=== PATIENT | female | born 1935 | race Caucasian/White ===

== ENCOUNTER 2017-05-02 00:01 | Inpatient (IN) | payer BC ==
--- NOTE | ~2017-05-02 | OP ---
Record Of Operation [facility] [address] [place]. [address] NAME: REINA GUARDADO : 37 STATUS : ADM IN PAT#: [id number] AGE: 81 ADM/REG DATE : 05/02/17 MR#: [id number] REPORT SERV DATE: 05/02/17 DICTATED BY: CORDELIA CADE DATE: 05/02/17 REPORT STATUS : Draft TRANSCRIBED BY: MODL DATE: 05/02/17 DATE OF PROCEDURE: 05/02/2017 PREOPERATIVE DIAGNOSIS: Left hip intertrochanteric hip fracture. POSTOPERATIVE DIAGNOSIS: Left hip intertrochanteric hip fracture (3 part). SURGEON: Cordelia Cade M.D. STUDENT ASSISTANT: Merritt Paulson. ANESTHESIA: General. PROCEDURE IN DETAIL: The patient is clearly identified and after obtaining informed consent, she is brought to the operating room at [facility] where she is induced under general anesthesia via LMA, carefully placed on the fracture table with distraction, internal rotation, and image intensification reveals anatomic position and alignment of the fracture which is noted to be somewhat transverse intertrochanteric area, but this seems that the greater trochanteric fragment is somewhat unstable as well. Regardless, the left lower extremity is then prepped and draped in the usual manner. A time-out procedure is successfully performed through an inch incision above the greater trochanter. Skin is divided, fascial planes are elevated, the guidepin is applied and proximal reamings performed. A 125 short gamma nail is then placed uneventfully. A second incision is made with a guidepin placed in the appropriate position of the femoral head. It is reamed and the lag screw is applied and locked in dynamic fashion. The distal dynamic screw is then placed uneventfully utilizing the guide, and this concluded, the instruments are all removed. The implant looks excellent. The fixation position looks good and the area is then copiously irrigated and closed in layers. The leg is cleansed and dressed. The patient is allowed to awaken and is transferred to the recovery room in stable condition having tolerated the procedure well. ESTIMATED BLOOD LOSS: 50 mL. FLUIDS: 500 mL. TOURNIQUET TIME: None. PATHOLOGY: None. MICROBIOLOGY: None. COMPLICATIONS: None. SPONGE AND NEEDLE COUNTS: Reportedly correct. ANTIBIOTICS: Administered appropriately preoperatively and ordered to be discontinued within Record Of Operation [facility] [address] [place]. [address] NAME: REINA GUARDADO : 37 STATUS : ADM IN PAT#: [id number] AGE: 81 ADM/REG DATE : 05/02/17 MR#: [id number] REPORT SERV DATE: 05/02/17 DICTATED BY: CORDELIA CADE DATE: 05/02/17 REPORT STATUS : Draft TRANSCRIBED BY: MODL DATE: 05/02/17 23 hours. IMPLANTS: Venkat short Gamma nail. JN/BRENNONL Cordelia Cade M.D. / [id number] CC: Stuart Floyd DO
--- NOTE | ~2017-05-02 | DS ---
Discharge Summary [place] [id number] [facility] [place]. [address] NAME: REINA GUARDADO : 37 STATUS : DIS IN PAT#: [id number] AGE: 81 ADM/REG DATE : 05/02/17 MR#: [id number] REPORT SERV DATE: 05/07/17 DICTATED BY: FAN PARISH DATE: 05/06/17 REPORT STATUS : Draft TRANSCRIBED BY: BRENNONL DATE: 05/06/17 ADMISSION DATE: 05/02/2017 DISCHARGE DATE: 05/06/2017 REASON FOR ADMISSION: This was an 81-year-old female who had a fall in her driveway at home and had a left hip intratrochanteric hip fracture which was discovered at [facility] Emergency room and they were transferred to [facility] for surgery. DISCHARGE DIAGNOSES: 1. Left hip fracture, status post repair. 2. Hypertension. 3. Acute blood loss anemia. HOSPITAL COURSE: 1. The patient had hip fracture repair done by Dr. Timothy Cade on 05/02/2017. The patient did well with surgery. She has no real significant comorbidities other than hypertension and so she has done quite well postoperatively, moving around well with PT, but still was in need of inpatient rehab. She has been started on Coumadin. Her INR is 1.4, and she has been arranged for rehab at [facility]. 2. Acute blood loss anemia. The patient's hemoglobin did drop after surgery, but is stable at 9.9. DISCHARGE CONDITION: Stable. DISCHARGE MEDICATIONS: 1. Lisinopril 20 mg p.o. q.h.s. 2. Vitamin D3 5000 units p.o. q.h.s. 3. Coumadin sliding scale. DISCHARGE PLAN: The patient is discharged to [facility] for rehab and follow up with her primary care, Dr. Kelley French, after discharge. DICTATED BY: APOLONIA Quintana/DEREK Fan Parish APN / [id number] CC: Keagan Martinez M.D. Discharge Summary [place] [id number] [place]. [address] NAME: REINA GUARDADO : 37 STATUS : DIS IN PAT#: [id number] AGE: 81 ADM/REG DATE : 05/02/17 MR#: [id number] REPORT SERV DATE: 05/07/17 DICTATED BY: FAN PARISH DATE: 05/06/17 REPORT STATUS : Draft TRANSCRIBED BY: MODL DATE: 05/06/17 DO Timothy Lebron M.D.
[~2017-05-02 00:01] MED LIST: *DENIES; PRIN20 PO; VITAMIN D31000 UNIT PO
[2017-05-02 06:47] LABS: BASOPHILS 0.2 %; BASOPHILS ABSOLUTE 0.02 10/3/uL (0.0-0.16); EOSINOPHILS 0.2 %; EOSINOPHILS ABSOLUTE 0.02 10/3/uL (0.0-0.53); HEMATOCRIT 32.7 % (36.0-48.0); HEMOGLOBIN 11.4 g/dL (12.0-16.0); IMMATURE GRANULOCYTES 0.2 %; IMMATURE GRANULOCYTES ABSOLUTE 0.02 10/3/uL (0.0-0.11); LYMPHOCYTES 10.1 %; LYMPHOCYTES ABSOLUTE 0.85 10/3/uL (0.67-4.30); MEAN CORPUS HGB CONC 34.9 g/dL (32.0-36.0); MEAN CORPUSCULAR HEMOGLOB 31.5 pg (26.0-34.0); MEAN CORPUSCULAR VOLUME 90.3 fL (80-100); MEAN PLATELET VOLUME 10.1 fL (9.2-13.0); MONOCYTES 8.3 %; NEUTROPHILS ABSOLUTE 6.79 10/3/uL (2.02-8.40); PLATELET COUNT 190 10/3/uL (150-400); RBC DISTRIBUTION WIDTH 12.7 % (12.0-16.0); RED CELL COUNT 3.62 10/6/uL (4.0-5.6); WHITE BLOOD CELLS 8.4 10/3/uL (4.5-10.5)
[2017-05-02 06:51] LABS: MANUAL DIFF NO %
[2017-05-02 06:54] LABS: INTERNATIONAL NORMAL RATI 1.1 UNITS (-); PROTIME (NOT ORD) 14.5 SEC (12.0-14.5)
[2017-05-02 07:05] LABS: ALKALINE PHOSPHATASE 73 U/L (45-117); BUN (BLOOD UREA NITROGEN) 13 MG/DL (6-23); CALCIUM, SERUM 8.7 MG/DL (8.5-10.4); CHLORIDE, SERUM 104 MMOL/L (96-112); CO2 (CARBON DIOXIDE) 25 MMOL/L (24-34); CREATININE 0.56 MG/DL (0.55-1.02); GFR AFRICAN AMERICAN 102 ML/MIN (>=60); GFR NON AFRICAN AMERICAN 88 ML/MIN (>=60); SGOT(AST) 19 U/L (5-40); SGPT(ALT) 16 U/L (5-65); SODIUM, SERUM 137 MMOL/L (135-148)
[2017-05-02 07:06] LABS: A/G RATIO 1.1 (0.7-1.9); ALBUMIN 3.2 G/DL (3.5-5.0); GLOBULIN 2.8 G/DL (2.5-4.1); GLUCOSE, SERUM 98 MG/DL (60-99); POTASSIUM, SERUM 4.3 MMOL/L (3.5-5.3); TOTAL BILIRUBIN 1.1 MG/DL (0-1.2)
[2017-05-03 04:19] LABS: HEMATOCRIT 29.5 % (36.0-48.0); HEMOGLOBIN 10.2 g/dL (12.0-16.0)
[2017-05-03 04:25] LABS: INTERNATIONAL NORMAL RATI 1.2 UNITS (-)
[2017-05-03 04:36] LABS: BUN (BLOOD UREA NITROGEN) 12 MG/DL (6-23); CHLORIDE, SERUM 103 MMOL/L (96-112); CO2 (CARBON DIOXIDE) 23 MMOL/L (24-34); CREATININE 0.53 MG/DL (0.55-1.02); GFR AFRICAN AMERICAN 104 ML/MIN (>=60); GFR NON AFRICAN AMERICAN 90 ML/MIN (>=60); GLUCOSE, SERUM 88 MG/DL (60-99); POTASSIUM, SERUM 4.1 MMOL/L (3.5-5.3); SODIUM, SERUM 135 MMOL/L (135-148)
[2017-05-04 06:23] LABS: INTERNATIONAL NORMAL RATI 1.3 UNITS (-); PROTIME (NOT ORD) 16.5 SEC (12.0-14.5)
[2017-05-04 06:26] LABS: BUN (BLOOD UREA NITROGEN) 9 MG/DL (6-23); CHLORIDE, SERUM 102 MMOL/L (96-112); CO2 (CARBON DIOXIDE) 27 MMOL/L (24-34); CREATININE 0.59 MG/DL (0.55-1.02); GFR AFRICAN AMERICAN 100 ML/MIN (>=60); GFR NON AFRICAN AMERICAN 87 ML/MIN (>=60); GLUCOSE, SERUM 91 MG/DL (60-99); POTASSIUM, SERUM 3.9 MMOL/L (3.5-5.3); SODIUM, SERUM 135 MMOL/L (135-148)
[2017-05-04 06:29] LABS: BASOPHILS 0.4 %; BASOPHILS ABSOLUTE 0.03 10/3/uL (0.0-0.16); EOSINOPHILS 0.7 %; EOSINOPHILS ABSOLUTE 0.05 10/3/uL (0.0-0.53); HEMATOCRIT 27.5 % (36.0-48.0); HEMOGLOBIN 9.7 g/dL (12.0-16.0); IMMATURE GRANULOCYTES 0.3 %; IMMATURE GRANULOCYTES ABSOLUTE 0.02 10/3/uL (0.0-0.11); LYMPHOCYTES 19.2 %; LYMPHOCYTES ABSOLUTE 1.32 10/3/uL (0.67-4.30); MEAN CORPUS HGB CONC 35.3 g/dL (32.0-36.0); MEAN CORPUSCULAR HEMOGLOB 31.4 pg (26.0-34.0); MEAN PLATELET VOLUME 10.4 fL (9.2-13.0); MONOCYTES 11.8 %; MONOCYTES ABSOLUTE 0.81 10/3/uL (0.21-1.20); NEUTROPHILS 67.6 %; NEUTROPHILS ABSOLUTE 4.64 10/3/uL (2.02-8.40); PLATELET COUNT 159 10/3/uL (150-400); RBC DISTRIBUTION WIDTH 13.1 % (12.0-16.0); RED CELL COUNT 3.09 10/6/uL (4.0-5.6); WHITE BLOOD CELLS 6.9 10/3/uL (4.5-10.5)
[2017-05-04 06:31] LABS: MANUAL DIFF NO %
[2017-05-05 07:15] LABS: HEMATOCRIT 28.6 % (36.0-48.0); HEMOGLOBIN 9.9 g/dL (12.0-16.0)
[2017-05-05 07:16] LABS: INTERNATIONAL NORMAL RATI 1.3 UNITS (-); PROTIME (NOT ORD) 15.8 SEC (12.0-14.5)
[2017-05-05 07:23] LABS: BUN (BLOOD UREA NITROGEN) 8 MG/DL (6-23); CALCIUM, SERUM 8.4 MG/DL (8.5-10.4); CHLORIDE, SERUM 105 MMOL/L (96-112); CO2 (CARBON DIOXIDE) 28 MMOL/L (24-34); GFR AFRICAN AMERICAN 106 ML/MIN (>=60); GFR NON AFRICAN AMERICAN 91 ML/MIN (>=60); GLUCOSE, SERUM 90 MG/DL (60-99); POTASSIUM, SERUM 4.2 MMOL/L (3.5-5.3); SODIUM, SERUM 139 MMOL/L (135-148)
[2017-05-06 07:37] LABS: INTERNATIONAL NORMAL RATI 1.4 UNITS (-); PROTIME (NOT ORD) 17.4 SEC (12.0-14.5)
== END 2017-05-06 14:13 | DRG 481 ==
LOC: 1SO 00:01
PROVIDERS: Hospitalist; Internal Medicine; Nurse Practitioner Gerontology; Orthopaedic Surgery
PROC: 0QS736Z Reposition Left Upper Femur with Intramedullary Internal Fixation Device, Percutaneous Approach (ICD-10-PCS; principal; 2017-05-02 13:15)
DX: S72.142A Displaced intertrochanteric fracture of left femur, initial encounter for closed fracture (principal); D62 Acute posthemorrhagic anemia; I44.2 Atrioventricular block, complete; I10 Essential (primary) hypertension; E55.9 Vitamin D deficiency, unspecified; W18.30XA Fall on same level, unspecified, initial encounter; Z79.899 Other long term (current) drug therapy; Z88.6 Allergy status to analgesic agent; Z91.048 Other nonmedicinal substance allergy status
CPT/HCPCS: 71010; 73502-LT; 76000; 80048; 80053; 81001; 85014; 85018; 85025; 85610; 93005; 96374; 97110-GP; 97116-GP; 97161-GP; 97165-GO; 97530-GP; 97535-GO; 99285; A9270-GY; C1713; G8987-CK-GO; G8988-CJ-GO; J0690; J1170; J2270; J2795; J3010